=== PATIENT | male | born 1970 | race Caucasian/White ===

== ENCOUNTER 2022-08-06 19:06 | Inpatient (IN) | payer BC, OTHER ==
[~2022-08-06] VITALS: Ht 190.5 cm; Wt 98.0 kg
[2022-08-06 20:00] LABS: Basophils # (auto) 0.1 10 ^3/uL (0-0.2); Eosinophils # (auto) 0 10 ^3/uL (0-0.8); Eosinophils % (auto) 0.8 % (0.0-7.0); Hematocrit 47.7 % (41.0-53.0); Hemoglobin 15.6 g/dL (13.5-17.5); Lymphocytes # (auto) 1.8 10 ^3/uL (0.4-5.4); Lymphocytes % (auto) 30.9 % (10.0-50.0); Mean Corpuscular Hemoglobin 28.7 pg (28.0-32.0); Mean Corpuscular Hgb Conc. 32.7 g/dL (32.0-36.0); Mean Corpuscular Volume 87.8 fL (80.0-100.0); Monocytes # (auto) 0.5 10 ^3/uL (0-1.3); Monocytes % (auto) 7.8 % (0.0-12.0); Neutrophils # (auto) 3.5 10 ^3/uL (1.6-8.6); Neutrophils % (auto) 59.5 % (37.0-80.0); Nucleated Red Blood Cells % 0.2 %; Red Blood Cells 5.43 10^6/uL (4.5-5.90); Red Cell Distribution Width 13.5 % (11.8-14.3); White Blood Cell 5.9 10^3/uL (4.4-10.8)
[2022-08-06 20:17] LABS: Albumin 4.2 g/dL (3.4-5.0); Calcium 8.9 mg/dL (8.5-10.1); Potassium 3.6 mmol/L (3.5-5.1)
[2022-08-06 20:20] LABS: BUN/Creatinine Ratio 11.5; Bilirubin, Total 0.7 mg/dL (0.2-1.0); Total Protein 7.7 g/dL (6.4-8.2)
[2022-08-06] MEDS ORDERED: ASPirin 81 mg TAB PO ONE (21:00)
[2022-08-06] MEDS ORDERED: TEMAZEPAM 15 MG CAP PO PRN (22:15)
[2022-08-06] MEDS ORDERED: MORPHINE SULFATE INJ 2 MG/ml SYRG IV PRN (22:15)
[2022-08-06] MEDS ORDERED: ACETAMINOPHEN 325 MG TAB PO PRN (22:15)
[2022-08-06] MEDS ORDERED: ONDANSETRON HCL 4 MG/2 ML VIAL IV PRN (22:15)
[2022-08-06] MEDS ORDERED: NITROGLYCERIN 0.4 MG SL TAB SL PRN (22:15)
[2022-08-06] MEDS ORDERED: LISINOPRIL 5 MG TAB PO ONE (22:15)
[2022-08-06 23:31] LABS: Urine Bacteria NONE SEEN /hpf (None Seen); Urine Blood Negative /uL (Negative); Urine Mucus FEW (None Seen); Urine WBC 2 /hpf (0 - 3)
[2022-08-07 05:09] LABS: Basophils # (auto) 0.1 10 ^3/uL (0-0.2); Eosinophils # (auto) 0.1 10 ^3/uL (0-0.8); Eosinophils % (auto) 0.8 % (0.0-7.0); Hematocrit 44.8 % (41.0-53.0); Lymphocytes # (auto) 1.8 10 ^3/uL (0.4-5.4); Lymphocytes % (auto) 26.6 % (10.0-50.0); Mean Corpuscular Hemoglobin 28.9 pg (28.0-32.0); Mean Corpuscular Hgb Conc. 33.6 g/dL (32.0-36.0); Mean Corpuscular Volume 86.1 fL (80.0-100.0); Monocytes # (auto) 0.5 10 ^3/uL (0-1.3); Monocytes % (auto) 7.8 % (0.0-12.0); Neutrophils # (auto) 4.2 10 ^3/uL (1.6-8.6); Neutrophils % (auto) 62.8 % (37.0-80.0); Nucleated Red Blood Cells % 0.1 %; White Blood Cell 6.7 10^3/uL (4.4-10.8)
[2022-08-07 05:27] LABS: BUN/Creatinine Ratio 11.9; Calcium 8.8 mg/dL (8.5-10.1); Potassium 4.3 mmol/L (3.5-5.1)
[2022-08-07] MEDS: ASPirin 81 mg TAB PO SCH (10:33)
[2022-08-07] MEDS: LISINOPRIL 5 MG TAB PO SCH (10:34)
[2022-08-07] MEDS: PANTOPRAZOLE 40 MG TAB PO SCH (10:35)
[2022-08-07] MEDS: ENOXAPARIN SOD 40 MG/0.4 ML SYRINGE SC SCH (10:36)
[2022-08-07 11:54] LABS: Cholesterol 207 mg/dL (< 200); HDL Cholesterol 35 mg/dL (40-59); LDL Cholesterol 121 mg/dL (< 100); Triglycerides 330 mg/dL (< 150)
[2022-08-07 14:04] LABS: Amphetamine Screen, Urine NEGATIVE (NEGATIVE); Barbiturate Scree,Urine NEGATIVE (NEGATIVE); Benzodiazephine Screen, Urine NEGATIVE (NEGATIVE); Cannabinoid Screen, Urine NEGATIVE (NEGATIVE); Cocaine Screen, Urine NEGATIVE (NEGATIVE); Opiate Scree,Urine NEGATIVE (NEGATIVE); Phencyclidine Screen, Urine NEGATIVE (NEGATIVE)
[2022-08-07 20:45] VITALS: BP 140/83
[2022-08-07] MEDS ORDERED: ATORVASTATIN 20 MG TAB PO SCH (22:00)
[2022-08-08 05:00] VITALS: BP 106/64
[2022-08-08] MEDS ORDERED: ADENOSINE 81 MG in GIVE UN-DILUTED 0 ML IV STA (07:54)
[2022-08-08 09:00] VITALS: BP 117/74
[2022-08-08] MEDS: ENOXAPARIN SOD 40 MG/0.4 ML SYRINGE SC SCH (10:16)
[2022-08-08] MEDS: LISINOPRIL 5 MG TAB PO SCH (10:17)
[2022-08-08] MEDS: PANTOPRAZOLE 40 MG TAB PO SCH (10:17)
[2022-08-08] MEDS: ASPirin 81 mg TAB PO SCH (10:18)
[2022-08-08] MEDS: ATORVASTATIN 20 MG TAB PO SCH ×2 (10:19→21:12)
[2022-08-08 13:00] VITALS: BP 105/82
[2022-08-08 17:03] VITALS: BP 107/71
[2022-08-08 22:00] VITALS: BP 129/80
[2022-08-09 05:00] VITALS: BP 112/73
[2022-08-09 09:05] VITALS: BP 129/93
[2022-08-09] MEDS: ASPirin 81 mg TAB PO SCH (11:27)
[2022-08-09] MEDS: LISINOPRIL 5 MG TAB PO SCH (11:29)
[2022-08-09] MEDS: ENOXAPARIN SOD 40 MG/0.4 ML SYRINGE SC SCH (11:29)
[2022-08-09] MEDS: PANTOPRAZOLE 40 MG TAB PO SCH (11:30)
[2022-08-09] MEDS: FUROSEMIDE 40 MG/4 ML VIAL IV SCH (11:32)
[2022-08-09 12:20] VITALS: BP 147/96
[2022-08-09 16:58] VITALS: BP 110/76
[2022-08-09] MEDS: ATORVASTATIN 20 MG TAB PO SCH (21:10)
[2022-08-09 21:40] VITALS: BP 102/66
[2022-08-10] VITALS (10 sets, daily range): BP systolic 91–126; BP diastolic 61–91
[2022-08-10 06:01] LABS: Basophils # (auto) 0 10 ^3/uL (0-0.2); Basophils % (auto) 0.6 % (0.0-2.0); Eosinophils # (auto) 0.1 10 ^3/uL (0-0.8); Eosinophils % (auto) 1.3 % (0.0-7.0); Hematocrit 44.3 % (41.0-53.0); Hemoglobin 15.2 g/dL (13.5-17.5); Lymphocytes # (auto) 2.1 10 ^3/uL (0.4-5.4); Lymphocytes % (auto) 30.7 % (10.0-50.0); Mean Corpuscular Hemoglobin 29.5 pg (28.0-32.0); Mean Corpuscular Hgb Conc. 34.4 g/dL (32.0-36.0); Mean Corpuscular Volume 85.7 fL (80.0-100.0); Monocytes # (auto) 0.6 10 ^3/uL (0-1.3); Monocytes % (auto) 8.4 % (0.0-12.0); Nucleated Red Blood Cells % 0.1 %; Red Blood Cells 5.17 10^6/uL (4.5-5.90); Red Cell Distribution Width 13.1 % (11.8-14.3); White Blood Cell 6.8 10^3/uL (4.4-10.8)
[2022-08-10 06:17] LABS: INR 0.97 (0.9-1.15); Partial Thromboplastin Time 28.3 sec (24.6-33.4)
[2022-08-10 06:18] LABS: Calcium 8.8 mg/dL (8.5-10.1); Potassium 4.2 mmol/L (3.5-5.1)
[2022-08-10 06:19] LABS: BUN/Creatinine Ratio 20.2
[2022-08-10] MEDS: ASPirin 81 mg TAB PO SCH (09:20)
[2022-08-10] MEDS: LISINOPRIL 5 MG TAB PO SCH (09:20)
[2022-08-10] MEDS: PANTOPRAZOLE 40 MG TAB PO SCH (09:21)
[2022-08-10] MEDS: ENOXAPARIN SOD 40 MG/0.4 ML SYRINGE SC SCH (09:22)
[2022-08-10] MEDS: FUROSEMIDE 40 MG/4 ML VIAL IV SCH (09:22)
[2022-08-10] MEDS ORDERED: HEPARIN 1,000 UNITS/ml 1ML VIAL ONE (13:35)
[2022-08-10] MEDS ORDERED: LIDOCAINE 2%HCL (LOCAL ANESTH.) INJ 20ML MDV ONE (13:35)
[2022-08-10] MEDS ORDERED: IOHEXOL 350 MG/ML 100ML IJ ONE (13:35)
[2022-08-10] MEDS ORDERED: ANGIOMAX 250 MG VIAL IV ONE (13:46)
[2022-08-10] MEDS ORDERED: VERAPAMIL 2.5MG/ML INJ 2ML VIAL IV ONE (13:47)
[2022-08-10] MEDS ORDERED: MIDAZOLAM HCL 2MG/2ML 2ml VIAL (1mg/ml) ONE (13:47)
[2022-08-10] MEDS ORDERED: SODIUM CHL 0.9% 0 ML ONE (13:47)
[2022-08-10] MEDS ORDERED: fentaNYL CITRATE 100 MCG/2 ML VL ONE (13:48)
[2022-08-10] MEDS ORDERED: HEPARIN SODIUM (PORCINE) 5000 UNITS/ML 1ML VIAL ONE (13:48)
[2022-08-10] MEDS: SODIUM CHLOR 0.9% PF (SALINE LOCK) 10ML VIAL/SYR IV SCH (21:56)
[2022-08-10] MEDS: ATORVASTATIN 20 MG TAB PO SCH (21:56)
[2022-08-11 04:45] VITALS: BP 94/56
[2022-08-11] MEDS: SODIUM CHLOR 0.9% PF (SALINE LOCK) 10ML VIAL/SYR IV SCH (06:42)
[2022-08-11] MEDS ORDERED: ATO40T PO (08:05)
[2022-08-11] MEDS ORDERED: FURO1TAB31 PO (08:05)
[2022-08-11] MEDS ORDERED: LISI-716 PO (08:05)
[2022-08-11] MEDS ORDERED: ASPI81CH49 PO (08:05)
[2022-08-11] MEDS ORDERED: METO25TA5 PO (08:05)
[2022-08-11] MEDS ORDERED: POTA10TA51 PO (08:05)
[2022-08-11] MEDS: ASPirin 81 mg TAB PO SCH (08:47)
[2022-08-11] MEDS: PANTOPRAZOLE 40 MG TAB PO SCH (08:47)
[2022-08-11] MEDS: LISINOPRIL 5 MG TAB PO SCH (08:48)
[2022-08-11] MEDS: ENOXAPARIN SOD 40 MG/0.4 ML SYRINGE SC SCH (08:48)
[2022-08-11] MEDS: FUROSEMIDE 40 MG/4 ML VIAL IV SCH (08:49)
[2022-08-11 09:00] VITALS: BP 115/87
[2022-08-11 10:02] VITALS: BP 115/87
== END 2022-08-11 11:16 | disposition home or self-care (01) | DRG 280 ==
LOC: ER 19:10 → TELE 22:03 → TELE-EAST 08-07 17:15
PROVIDERS: ADMIT Nurse Practitioner; ATTEND Family Medicine
PROC: 4A023N7 Measurement of Cardiac Sampling and Pressure, Left Heart, Percutaneous Approach (ICD-10-PCS; principal; 2022-08-06)
PROC: B2111ZZ Fluoroscopy of Multiple Coronary Arteries using Low Osmolar Contrast (ICD-10-PCS; 2022-08-06)
PROC: B2151ZZ Fluoroscopy of Left Heart using Low Osmolar Contrast (ICD-10-PCS; 2022-08-06)
DX: I11.0 Hypertensive heart disease with heart failure (principal); I50.41 Acute combined systolic (congestive) and diastolic (congestive) heart failure; I21.A1 Myocardial infarction type 2; E78.00 Pure hypercholesterolemia, unspecified; E78.5 Hyperlipidemia, unspecified; Z20.822 Contact with and (suspected) exposure to COVID-19; I25.10 Atherosclerotic heart disease of native coronary artery without angina pectoris; Z82.49 Family history of ischemic heart disease and other diseases of the circulatory system; Z95.1 Presence of aortocoronary bypass graft
CPT/HCPCS: 36415; 71045; 78452; 80048; 80053; 80061; 80307; 81001; 83036; 83735; 83880; 84443; 84484; 85025; 85610; 85730; 86850; 86900; 86901; 93005; 93017; 93306; 93458; 96372; 99152; G0378; J0153; J2250

== ENCOUNTER 2023-11-17 07:40 | Emergency (ER) | payer BC ==
[~2023-11-17] VITALS: Ht 190.5 cm; Wt 93.1 kg
[~2023-11-17 07:40] MED LIST: ASPI81CH49 PO; ATO40T PO; FURO1TAB31 PO; LISI10TA34 PO; METO25TA5 PO; POTA10TA51 PO
[2023-11-17 08:40] VITALS: BP 115/66; PULSE 102; RESP 20; TEMP 98.3; O2SAT 98
[2023-11-17 10:19] LABS: Urine Bacteria FEW /hpf (None Seen); Urine Blood 1+ /uL (Negative); Urine Budding Yeast OCCASIONAL /hpf (None Seen); Urine Clarity CLOUDY (Clear); Urine Color Brown (Yellow); Urine Hyaline Cast MANY /lpf (0 - 2); Urine Mucus MANY (None Seen); Urine Protein, UAD 3+ (Negative); Urine Specific Gravity 1.033 (1.001-1.035); Urine WBC 548 /hpf (0 - 3); Urine WBC Clumps PRESENT /hpf (None Seen)
[2023-11-17] MEDS ORDERED: TAMSULOSIN HYDROCHLORIDE 0.4 MG CAP PO ONE (11:30)
[2023-11-17] MEDS ORDERED: cefTRIAXone SOD 1,000 MG VL IM ONE (11:30)
[2023-11-17] MEDS ORDERED: TAMS-35 PO (11:35)
[2023-11-17] MEDS ORDERED: CIPR-173 PO (11:35)
== END 2023-11-17 11:57 | disposition home or self-care (01) ==
LOC: ER 07:40
DX: N39.0 Urinary tract infection, site not specified (principal)
CPT/HCPCS: 51702; 81001; 99284; J0696

== ENCOUNTER 2023-11-19 08:58 | Emergency (ER) | payer BC ==
[~2023-11-19] VITALS: Ht 190.5 cm; Wt 89.9 kg
[~2023-11-19 08:58] MED LIST changes: +CIPR-173 PO; +TAMS-35 PO
[2023-11-19 10:45] VITALS: BP 101/73; PULSE 98; RESP 16; TEMP 98.2; O2SAT 96
== END 2023-11-19 11:28 | disposition home or self-care (01) ==
LOC: ER 08:58
DX: N39.0 Urinary tract infection, site not specified (principal); Z46.6 Encounter for fitting and adjustment of urinary device

== ENCOUNTER 2023-12-27 14:16 | Emergency (ER) | payer BC ==
[~2023-12-27] VITALS: Ht 190.5 cm; Wt 100.0 kg
[2023-12-27 14:48] LABS: Basophils # (auto) 0 10 ^3/uL (0-0.2); Basophils % (auto) 0.6 % (0.0-2.0); Eosinophils # (auto) 0 10 ^3/uL (0-0.8); Eosinophils % (auto) 0.5 % (0.0-7.0); Hematocrit 43.3 % (41.0-53.0); Hemoglobin 14.6 g/dL (13.5-17.5); Lymphocytes # (auto) 2.4 10 ^3/uL (0.4-5.4); Lymphocytes % (auto) 37.7 % (10.0-50.0); Mean Corpuscular Hemoglobin 29.8 pg (28.0-32.0); Mean Corpuscular Hgb Conc. 33.7 g/dL (32.0-36.0); Mean Corpuscular Volume 88.6 fL (80.0-100.0); Monocytes # (auto) 0.5 10 ^3/uL (0-1.3); Monocytes % (auto) 7.4 % (0.0-12.0); Neutrophils # (auto) 3.5 10 ^3/uL (1.6-8.6); Neutrophils % (auto) 53.8 % (37.0-80.0); Nucleated Red Blood Cells % 0.1 %; Red Blood Cells 4.89 10^6/uL (4.5-5.90); Red Cell Distribution Width 13.9 % (11.8-14.3); White Blood Cell 6.5 10^3/uL (4.4-10.8)
[2023-12-27 15:04] LABS: Alanine Aminotransferase 62 U/L (7-40); Albumin 4.6 g/dL (3.2-4.8); Alkaline Phosphatase 61 U/L (46-116); Anion Gap 5 (5-15); Aspartate Aminotransferase 28 U/L (13-40); BUN/Creatinine Ratio 8.3 (10.0-20.0); Blood Urea Nitrogen 9 mg/dL (9-23); Carbon Dioxide 28 mmol/L (20-30); Chloride 107 mmol/L (98-107); Glucose 104 mg/dL (74-106); INR 1.01 (0.9-1.15); Magnesium 1.9 mg/dL (1.6-2.6); Partial Thromboplastin Time 24.9 SEC (24.5-34.5); Potassium 4.1 mmol/L (3.5-5.1); Prothrombin Time 10.6 sec (9.3-11.8); Sodium 140 mmol/L (136-145)
[2023-12-27 15:05] LABS: Total Protein 7.2 g/dL (5.7-8.2)
[2023-12-27] MEDS ORDERED: ASPirin 325 MG TAB PO ONE (16:00)
[2023-12-27 16:20] VITALS: BP 153/81; PULSE 77; RESP 16; TEMP 97.5; O2SAT 98
== END 2023-12-27 16:22 | disposition home or self-care (01) ==
LOC: ER 14:16
DX: R07.89 Other chest pain (principal); I10 Essential (primary) hypertension; Z79.899 Other long term (current) drug therapy
CPT/HCPCS: 36415; 71045; 80053; 83735; 83880; 84484; 85025; 85610; 85730; 93005

== ENCOUNTER 2023-12-30 13:34 | Emergency (ER) | payer BC ==
[~2023-12-30] VITALS: Ht 190.5 cm; Wt 93.0 kg
[2023-12-30 13:39] VITALS: BP 139/85; RESP 18; O2SAT 99
[2023-12-30 14:15] LABS: Basophils # (auto) 0 10 ^3/uL (0-0.2); Basophils % (auto) 0.3 % (0.0-2.0); Eosinophils # (auto) 0 10 ^3/uL (0-0.8); Eosinophils % (auto) 0.2 % (0.0-7.0); Hematocrit 46.9 % (41.0-53.0); Hemoglobin 15.7 g/dL (13.5-17.5); Lymphocytes # (auto) 1.4 10 ^3/uL (0.4-5.4); Lymphocytes % (auto) 21.8 % (10.0-50.0); Mean Corpuscular Hemoglobin 29.7 pg (28.0-32.0); Mean Corpuscular Hgb Conc. 33.4 g/dL (32.0-36.0); Mean Corpuscular Volume 88.8 fL (80.0-100.0); Monocytes # (auto) 0.4 10 ^3/uL (0-1.3); Monocytes % (auto) 6.4 % (0.0-12.0); Neutrophils # (auto) 4.5 10 ^3/uL (1.6-8.6); Neutrophils % (auto) 71.3 % (37.0-80.0); Nucleated Red Blood Cells % 0.1 %; Red Blood Cells 5.29 10^6/uL (4.5-5.90); Red Cell Distribution Width 13.9 % (11.8-14.3); White Blood Cell 6.3 10^3/uL (4.4-10.8)
[2023-12-30 14:28] LABS: Chloride 103 mmol/L (98-107); Potassium 3.9 mmol/L (3.5-5.1); Sodium 139 mmol/L (136-145)
[2023-12-30 14:29] LABS: Anion Gap 7 (5-15); Carbon Dioxide 29 mmol/L (20-30)
[2023-12-30 14:30] LABS: Calcium 9.6 mg/dL (8.5-10.1)
[2023-12-30 14:34] LABS: BUN/Creatinine Ratio 9.5 (10.0-20.0); Blood Urea Nitrogen 10 mg/dL (9-23); Glucose 114 mg/dL (74-106)
[2023-12-30 14:48] VITALS: PULSE 71
== END 2023-12-30 16:17 | disposition home or self-care (01) ==
LOC: ER 13:34
DX: R07.89 Other chest pain (principal); I10 Essential (primary) hypertension; I25.2 Old myocardial infarction; E78.5 Hyperlipidemia, unspecified; Z79.899 Other long term (current) drug therapy
CPT/HCPCS: 36415; 71045; 80048; 84484; 85025; 85379; 93005

== ENCOUNTER 2024-11-06 08:28 | Day surgery (SDC) | payer BC ==
[2024-10-30 14:33] LABS: Basophils # (auto) 0 10 ^3/uL (0-0.2); Basophils % (auto) 0.5 % (0.0-2.0); Eosinophils # (auto) 0.1 10 ^3/uL (0-0.8); Hematocrit 45.3 % (41.0-53.0); Hemoglobin 15.3 g/dL (13.5-17.5); Lymphocytes % (auto) 35.1 % (10.0-50.0); Mean Corpuscular Hemoglobin 30.4 pg (28.0-32.0); Mean Corpuscular Hgb Conc. 33.9 g/dL (32.0-36.0); Mean Corpuscular Volume 89.9 fL (80.0-100.0); Monocytes # (auto) 0.5 10 ^3/uL (0-1.3); Monocytes % (auto) 8.3 % (0.0-12.0); Neutrophils # (auto) 3.1 10 ^3/uL (1.6-8.6); Neutrophils % (auto) 55.1 % (37.0-80.0); Nucleated Red Blood Cells % 0.2 %; Platelet Count (auto) 226 10^3/uL (140-450); Red Blood Cells 5.04 10^6/uL (4.5-5.90); White Blood Cell 5.7 10^3/uL (4.4-10.8)
[2024-10-30 14:47] LABS: Albumin 4.6 g/dL (3.2-4.8); Alkaline Phosphatase 56 U/L (46-116); Anion Gap 5 (5-15); Aspartate Aminotransferase 21 U/L (13-40); BUN/Creatinine Ratio 10.9 (10.0-20.0); Blood Urea Nitrogen 12 mg/dL (9-23); Calcium 9.9 mg/dL (8.7-10.4); Carbon Dioxide 31 mmol/L (20-31); Chloride 107 mmol/L (98-107); Glucose 100 mg/dL (74-106); Potassium 4.8 mmol/L (3.5-5.1); Sodium 143 mmol/L (136-145)
[2024-10-30 14:48] LABS: Bilirubin, Total 0.7 mg/dL (0.2-1.0); Total Protein 7.1 g/dL (5.7-8.2)
[2024-10-30 14:51] LABS: INR 1.01 (0.9-1.15); Partial Thromboplastin Time 25.4 SEC (24.5-34.5); Prothrombin Time 10.7 sec (9.3-11.8)
[2024-10-30 14:54] LABS: Alanine Aminotransferase 47 U/L (7-40)
[~2024-11-06] VITALS: Ht 190.5 cm; Wt 97.5 kg
[~2024-11-06 08:28] MED LIST changes: -ATO40T PO; +ATOR-507 PO; -CIPR-173 PO; -FURO1TAB31 PO; +POTA-36 PO; -POTA10TA51 PO; -TAMS-35 PO
[2024-11-06] MEDS ORDERED: SODIUM CHLORIDE LOCK 10 ML ONE (08:39)
[2024-11-06 10:40] VITALS: O2SAT 97
[2024-11-06] MEDS: fentaNYL CITRATE 100 MCG/2 ML VL ONE (10:44)
[2024-11-06] MEDS: MIDAZOLAM HCL 5 MG/ML-1ML VIAL ONE (10:44)
[2024-11-06] MEDS: diphenhdrAMINE HCL 50 MG/1 ML VL ONE (10:44)
[2024-11-06 11:06] VITALS: PULSE 62; RESP 12; TEMP 97.5; O2SAT 94
--- NOTE | 2024-11-06 11:08 | DVHOP2 ---
Operative Report DATE OF OPERATION: 11/06/24 PROCEDURE: Diagnostic Colonoscopy. PREOPERATIVE INDICATION: The patient is a 54 -year-old male undergoing colonoscopy for colon cancer screening POSTOPERATIVE DIAGNOSES: 1. Trace internal hemorrhoids otherwise normal examination up to the cecum and terminal ileum PROCEDURE PERFORMED BY: Mallory Portillo M.D. SCOPE: Olympus videocolonoscope. ASA CLASS: 2. PREOPERATIVE MEDICATIONS: Versed 5 mg, Fentanyl 100 mcg, Benadryl 50 mg PROCEDURE IN DETAIL: After obtaining an informed consent, the patient was placed on left lateral decubitus position. He was then sedated with the above medications. A rectal examination was performed that was normal. The colonoscope was then passed through the anus into the rectosigmoid and through the descending, transverse, and ascending colon up to the cecum with visualization of the appendiceal orifice, base of the cecum and the ileocecal valve. The colonoscope was then withdrawn. The distal 5 cm of the terminal ileum were normal. There was no colitis or diverticular disease seen. There were no polyps. Patient had a good bowel prep and it was essentially a completely normal colonoscopy examination On retroflexion he had trace to 1+ internal hemorrhoids The patient tolerated the procedure well without difficulty. WITHDRAWAL TIME: 6 minutes QUALITY OF THE PREP: [place] Bowel Prep score: 9. COMPLICATIONS : None SPECIMENS: None DISPOSITION: Stable D/C to home PLAN: 1. Repeat colonoscopy in 10 years 2. Resume GI soft diet advance as tolerated 3. Outpatient follow up with me in 4-6 weeks to review results and discuss further management 4. Local anorectal hemorrhoidal care MALLORY PORTILLO MD Nov 06, 2024 11:08
[2024-11-06 11:20] VITALS: BP 123/72; PULSE 67; RESP 13; O2SAT 95
== END 2024-11-06 11:57 | disposition home or self-care (01) ==
LOC: GI 08:28
PROVIDERS: ATTEND Internal Medicine Gastroenterology
DX: Z12.11 Encounter for screening for malignant neoplasm of colon (principal); K64.0 First degree hemorrhoids; I25.10 Atherosclerotic heart disease of native coronary artery without angina pectoris; Z86.73 Personal history of transient ischemic attack (TIA), and cerebral infarction without residual deficits
CPT/HCPCS: 36415; 45378; 80053; 85025; 85610; 85730; J1200; J2250; J3010; J7030; 99152